=== PATIENT | female | born 1990 | race Two or more races ===

== ENCOUNTER 2025-01-15 21:13 | Emergency (ER) | payer OTHER ==
[~2025-01-15] VITALS: Ht 165.1 cm; Wt 90.7 kg
[~2025-01-15 21:13] MED LIST: AMOX1TAB12 PO; Mucinex 600 MG TABLET.SA PO; Proventil 0.083% 2.5MG/3ML AMPUL.NEB. IH; Tessalon 200MG PO; ZITHROMAX500 MG PO
[2025-01-15 22:39] VITALS: BP 148/90; O2SAT 98
[2025-01-15] MEDS ORDERED: METHYLPREDNISOLONE SOD SUCC 125 MG VIAL IV STA (23:36)
[2025-01-15] MEDS ORDERED: 0.9 % SODIUM CHLORIDE 500 ML IV STA (23:37)
[2025-01-15] MEDS ORDERED: GUAIFENESIN 200 MG/10 ML BLIST.PACK PO STA (23:40)
[2025-01-15] MEDS ORDERED: IPRATROPIUM BROMIDE 0.5 MG/2.5 ML AMPUL.NEB IH SCH (23:45)
[2025-01-15] MEDS ORDERED: IPRATROPIUM BROMIDE 0.5 MG/2.5 ML AMPUL.NEB IH ONE (23:51)
[2025-01-16] MEDS ORDERED: GUAIFENESIN 200 MG/10 ML BLIST.PACK PO ONE (00:20)
[2025-01-16] MEDS ORDERED: METHYLPREDNISOLONE SOD SUCC 125 MG VIAL ONE (00:20)
[2025-01-16 01:09] LABS: BASO % 0.4 % (0.1-1.2); EOS # 0.34 (0.04-0.54); EOS % 3.4 % (0.7-7.0); LYMPH # 3.26 (1.18-3.74); LYMPH % 33.0 % (19.3-53.1); MEAN PLATELET VOLUME 10.00 fl (9.4-12.4); MONO # 0.67 (0.24-0.82); MONO % 6.8 % (4.7-12.5); NEUT # 5.53 (1.56-6.13); NEUT % 55.9 % (34.0-71.1); RED CELL DISTRIBUTION WIDTH 12.6 % (11.6-14.4)
[2025-01-16 01:41] LABS: ALT/SGPT 40.0 U/L (12-78); AST/SGOT 22.0 U/L (15-37); BILIRUBIN TOTAL 0.34 mg/dL (0.3-1.2); BUN CREA RATIO 22.0 (7.0-25.0); CREATININE SERUM 0.74 mg/dL (0.55-1.02); GFR 90.95; GLOBULINA 4.0 G/DL (2.4-3.5); GLUCOSE FASTING 100.0 mg/dL (65-100); OSMOLALITY SERUM 283.0 MOSM/KG (275-295)
[2025-01-16 02:20] LABS: COVID-19 AG NEGATIVE (NEGATIVE)
[2025-01-16] MEDS ORDERED: LEVALBUTER0.63 MG/3 IH (03:23)
[2025-01-16] MEDS ORDERED: ZYNCOF 20-400120 ML PO (03:23)
== END 2025-01-16 03:51 ==
LOC: ER 21:13
PROVIDERS: General Practice
DX: J40 Bronchitis, not specified as acute or chronic (principal); R05.9 Cough, unspecified; Z20.822 Contact with and (suspected) exposure to COVID-19